=== PATIENT | female | born 1990 | race Two or more races ===

== ENCOUNTER 2020-12-29 12:23 | Inpatient (IN) ==
[2020-12-29] MEDS ORDERED: ceFAZolin 2,000 MG/50 ML DUPLEX IV ONE (13:26)
[2020-12-29] MEDS ORDERED: CITRIC ACID/SODIUM CITRATE 30 ML UDCUP PO ONE (13:26)
[2020-12-29 13:55] LABS: Basophils % 0.2 % (0.0-0.8); Eosinophils % 0.2 % (0.00-10.9); Hematocrit 37.4 VOL% (35.7-47.0); Hemoglobin 12.2 GM/DL (12.0-16.0); Immature Granulocytes % 1.9 %; Immature Granulocytes Absolute 0.28 #; Lymphocytes # 1.9 10*3/uL (1.4-4.0); Lymphocytes % 12.9 % (21.3-54.2); Mean Corpuscular HGB Conc 32.6 GM/DL (32-36); Mean Corpuscular Volume 87.2 FL (87-102); Mean Platelet Volume 10.1 FL (9.6-12.0); Monocytes % 5.5 % (1.7-12.7); Neutrophils % 79.3 % (38.7-73.9); Platelet Count 366 T/CUMM (130-400); Red Blood Count 4.29 MC/CUMM (3.8-5.5); Red Cell Distribution Width 13.3 % (9.3-17.3); White Blood Count 14.9 T/CUMM (4-12)
[2020-12-29] MEDS: LACTATED RINGERS 1,000 ML IV SCH ×3 (14:03→23:05)
[2020-12-29 14:07] LABS: PT Patient Result 10.7 SECS (10.5-12.0); Partial Thromboplastin Time 26.5 SECS (23.9-33.8)
[2020-12-29 14:11] LABS: Alanine Aminotransferase 13 U/L (13-56); Albumin 2.4 G/DL (3.4-5.0); Alkaline Phosphatase 153 U/L (45-117); Aspartate Amino Transferase 11 U/L (0-37); Bilirubin,Direct < 0.100 MG/DL (0.0-0.20); Bilirubin,Total < 0.39 MG/DL (0.20-1.00); Blood Urea Nitrogen 7 MG/DL (7-18); Calcium 8.8 MG/DL (8.5-10.1); Carbon Dioxide 23 MMOL/L (21-32); Estimated Glom Filtration Rate 186 ML/MIN; Glucose 91 MG/DL (74-106); Osmolality,Calculated 276.4 MOS/KG (273-304); Potassium 3.9 MMOL/L (3.5-5.1); Sodium 140 MMOL/L (136-145); Total Protein 6.8 G/DL (6.4-8.2); Uric Acid 4.2 MG/DL (2.6-6.0)
[2020-12-29] MEDS ORDERED: NIFEdipine 10 MG CAPSULE PO ONE (14:25)
[2020-12-29 14:39] LABS: Bacteria,Urine Occasional /HPF (Few); Bilirubin,Urine Negative (Negative); Blood, Urine Negative (Negative); Glucose,Urine (UA) Negative (Negative); Ketones,Urine Negative (Negative); Mucus,Urine Occasional /LPF (Occasional); Nitrite,Urine Negative (Negative); Protein,Urine Negative; RBC,Urine 2 /HPF (0-4); Squamous Epithelial Cell,Urine Occasional /HPF (0-10); Urine Appearance CLEAR (Clear); Urine Color Yellow (Yellow); Urine Specific Gravity 1.013 (1.001-1.035); Urine Urobilinogen < 2.0 EU/DL (0.2-1.0)
[2020-12-29 15:04] LABS: Protein/Creatinine Ratio,Urine 0.2 RATIO
[2020-12-29] MEDS ORDERED: FAMOTIDINE 20 MG/2 ML VIAL IV ONE (15:12)
[2020-12-29] MEDS ORDERED: OXYTOCIN 10 UNIT/ML VIAL IM ONE (15:13)
[2020-12-29] MEDS ORDERED: OXYTOCIN/LR 30 UNIT/1,000 ML BAG IV ONE (15:14)
[2020-12-29] MEDS ORDERED: OXYTOCIN/LR 20 UNIT/1,000 ML BAG IV ONE ×2 (15:15→18:24)
[2020-12-29] MEDS ORDERED: TRANEXAMIC ACID 1,000 MG/10 ML VIAL ONE (16:35)
[2020-12-29] MEDS ORDERED: miSOPROStoL 200 MCG TABLET ONE (16:35)
[2020-12-29] MEDS ORDERED: METHYLERGONOVINE 0.2 MG/1 ML AMP ONE (16:36)
[2020-12-29] MEDS ORDERED: CARBOPROST TROMETHAMINE 250 MCG/ML AMP IM ONE (16:36)
[2020-12-29] MEDS ORDERED: ONDANSETRON 4 MG/2 ML VIAL ONE (16:51)
[2020-12-29] MEDS ORDERED: BUPIVACAINE SPINAL 0.75% 2 ML AMP SPINAL ONE (16:51)
[2020-12-29] MEDS ORDERED: ceFAZolin 3,000 MG in SYRINGE 1 EACH IV ONE (17:00)
[2020-12-29] MEDS ORDERED: PHENYLEPHRINE 1 MG/10 ML SYRINGE IV ONE ×2 (17:31→17:37)
[2020-12-29] MEDS ORDERED: fentaNYL 100 MCG/2 ML VIAL ONE (17:40)
[2020-12-29 17:57] LABS: Cord Arterial Blood HCO3 25.7 MMOL/L
[2020-12-29 18:01] LABS: Cord Venous Blood HCO3 23.7 MMOL/L; Cord Venous Blood PCO2 40.1 MMHG; Cord Venous Blood PO2 26.6 MMHG
[2020-12-29] MEDS ORDERED: ACETAMINOPHEN 325 MG TABLET PO PRN (18:24)
[2020-12-29] MEDS ORDERED: ONDANSETRON 4 MG/2 ML VIAL IV PRN (18:24)
[2020-12-29] MEDS ORDERED: MAGNESIUM HYDROXIDE SUSP 30 ML UDCUP PO PRN (18:24)
[2020-12-29] MEDS ORDERED: RHO(D) IMMUNE GLOBULIN 300 MCG SYRINGE IM ONE (18:24)
[2020-12-29] MEDS ORDERED: LACTATED RINGERS 1,000 ML IV SCH (18:30)
[2020-12-29] MEDS: KETOROLAC 30 MG/1 ML VIAL IV SCH (19:14)
[2020-12-29] MEDS: ACETAMINOPHEN 500 MG TABLET PO SCH (19:16)
[2020-12-29] MEDS ORDERED: diphenhydrAMINE 50 MG/1 ML VIAL IV PRN (19:27)
[2020-12-30] MEDS: hydrOXYzine HCL 25 MG/1 ML VIAL IM PRN ×2 (00:20→06:53)
[2020-12-30] MEDS: FUROSEMIDE 40 MG/4 ML VIAL IV SCH ×3 (00:21→12:45)
[2020-12-30] MEDS: KETOROLAC 30 MG/1 ML VIAL IV SCH ×3 (01:05→12:53)
[2020-12-30] MEDS: DOCUSATE SODIUM 100 MG CAPSULE PO SCH ×3 (01:13→20:16)
[2020-12-30] MEDS: ACETAMINOPHEN 500 MG TABLET PO SCH ×3 (01:26→17:50)
[2020-12-30 02:12] LABS: Basophils % 0.2 % (0.0-0.8); Eosinophils # 0.1 10*3/uL (0.0-0.87); Eosinophils % 0.4 % (0.00-10.9); Hematocrit 33.8 VOL% (35.7-47.0); Hemoglobin 11.2 GM/DL (12.0-16.0); Immature Granulocytes % 0.8 %; Immature Granulocytes Absolute 0.12 #; Lymphocytes % 19.7 % (21.3-54.2); Mean Corpuscular HGB Conc 33.1 GM/DL (32-36); Mean Corpuscular Volume 87.1 FL (87-102); Mean Platelet Volume 10.2 FL (9.6-12.0); Monocytes % 6.6 % (1.7-12.7); Neutrophils % 72.3 % (38.7-73.9); Platelet Count 314 T/CUMM (130-400); Red Blood Count 3.88 MC/CUMM (3.8-5.5); Red Cell Distribution Width 13.2 % (9.3-17.3); White Blood Count 15.3 T/CUMM (4-12)
[2020-12-30] MEDS ORDERED: FUROSEMIDE 40 MG/4 ML VIAL IV SCH ×2 (08:00→20:00)
[2020-12-30] MEDS: MULTIVITAMIN (PRENATAL) TABLET PO SCH (08:41)
[2020-12-30] MEDS: SIMETHICONE CHEW 80 MG TABLET PO PRN (08:41)
[2020-12-30] MEDS: METOCLOPRAMIDE 10 MG TABLET PO SCH ×3 (08:42→23:42)
[2020-12-30 10:07] LABS: Basophils % 0.2 % (0.0-0.8); Eosinophils # 0.1 10*3/uL (0.0-0.87); Eosinophils % 0.7 % (0.00-10.9); Hematocrit 34.4 VOL% (35.7-47.0); Immature Granulocytes Absolute 0.13 #; Lymphocytes # 2.3 10*3/uL (1.4-4.0); Lymphocytes % 18.3 % (21.3-54.2); Mean Corpuscular Volume 88.4 FL (87-102); Mean Platelet Volume 9.9 FL (9.6-12.0); Monocytes % 6.6 % (1.7-12.7); Neutrophils % 73.2 % (38.7-73.9); Platelet Count 313 T/CUMM (130-400); Red Blood Count 3.89 MC/CUMM (3.8-5.5); Red Cell Distribution Width 13.3 % (9.3-17.3); White Blood Count 12.4 T/CUMM (4-12)
[2020-12-30] MEDS: MAGNESIUM HYDROXIDE SUSP 30 ML UDCUP PO SCH ×2 (10:39→20:16)
[2020-12-30] MEDS: IBUPROFEN 800 MG TABLET PO PRN (15:07)
[2020-12-30] MEDS: oxyCODONE/ACETAMINOPHEN 5-325 MG TABLET PO PRN ×2 (18:02→23:43)
[2020-12-31] MEDS: IBUPROFEN 800 MG TABLET PO PRN (04:09)
[2020-12-31] MEDS: MAGNESIUM HYDROXIDE SUSP 30 ML UDCUP PO SCH ×2 (04:13→15:06)
[2020-12-31] MEDS: SIMETHICONE CHEW 80 MG TABLET PO PRN (08:00)
[2020-12-31] MEDS: DOCUSATE SODIUM 100 MG CAPSULE PO SCH (08:00)
[2020-12-31] MEDS: MULTIVITAMIN (PRENATAL) TABLET PO SCH (08:00)
[2020-12-31] MEDS: METOCLOPRAMIDE 10 MG TABLET PO SCH (08:00)
[2020-12-31] MEDS: oxyCODONE/ACETAMINOPHEN 5-325 MG TABLET PO PRN (08:00)
[2020-12-31 10:42] VITALS: BP 140/97
[2020-12-31] MEDS ORDERED: DIPH/TET/ACEL PERT BOOSTER VACCINE 0.5 ML VIAL IM ONE (12:17)
[2020-12-31] MEDS ORDERED: MEASLES/MUMPS/RUBELLA VACCINE 0.5 ML VIAL SUBCUT ONE (12:18)
== END 2020-12-31 13:15 | disposition home or self-care (01) | DRG 788 ==
LOC: N.LDOUT 12:23 → N.LD 12:52 → N.OB 23:33
PROVIDERS: ADMIT Obstetrics & Gynecology; ATTEND Obstetrics & Gynecology
PROC: LDCSECT (ICD-10-PCS; 2020-12-29 17:15)